=== PATIENT | male | born 1955 | race Caucasian/White ===

== ENCOUNTER → 2021-11-14 | Outpatient (CLI) | payer OTHER ==
--- NOTE | 2021-11-14 13:59 | RAD ---
EXAM: Lumbar spine, 2 views. HISTORY: Pain. COMPARISON: None. FINDINGS: 2 views of the lumbar spine are obtained. There is no listhesis. There is multilevel degene rative endplate remodeling. There is chronic minimal decreased anterior vertebral body height at T12. There is facet arthropathy primarily at the lower lumbar levels. IMPRESSION: Multilevel degenerative change. No acute osseous finding. Electronically signed by: Yue Kellogg MD (11/14/2021 1:57 PM) [id number]
--- NOTE | 2021-11-14 14:00 | RAD ---
EXAM: Chest, 2 views. HISTORY: COPD. COMPARISON: None. FINDINGS: 2 views of the chest are obtained. There is no infiltrate, pleural effusion or pneumothorax . The heart is normal in size. There are chronic appearing interstitial changes. IMPRESSION: No acute pulmonary finding. Electronically signed by: Yue Kellogg MD (11/14/2021 1:57 PM) [id number]
== END ==
LOC: RAD 13:03
PROVIDERS: ATTEND Family Medicine
DX: Z02.71 Encounter for disability determination (principal); M47.816 Spondylosis without myelopathy or radiculopathy, lumbar region; M48.8X6 Other specified spondylopathies, lumbar region
CPT/HCPCS: 71046; 72100